=== PATIENT | female | born 1965 ===

== ENCOUNTER 2017-01-29 16:54 | Emergency (ER) | payer MEDICAID ==
[2017-01-29 17:07] VITALS: BP 119/62; PULSE 86; RESP 12; TEMP 97.7; O2SAT 99
--- NOTE | 2017-01-29 17:47 | ED PDOC ---
HPI: Psych/Substance Abuse Time Seen by Provider: 01/29/17 17:10 Chief Complaint (Nursing): Chest Pain History Per: Patient History/Exam Limitations: no limitations Onset/Duration Of Symptoms: Days (5) Modifying Factor(s): None Associated Symptoms: Anxiety, Depression, Paranoia. denies: Suicidal Thoughts Additional Complaint(s): 51 year old female complains of chest pain for 4 days. She also reports unable to sleep at night, constantly thinking and feeling worried. Patient reports no appetite and not eating for 3 days. Today she feels nauseous and vomiting today after drinking ruperto tea. She additionally reports generalized headache, thinks her blood pressure is high and feels "jittery." She states she Patient reports history of depression and anxiety and used to take xanax, and klonopin but lost her insurance and was unable to afford and continue taking her psychiatric medication. She states she had lost her job and is unable to pay her bills and is having trouble paying rent and is scared she will get evicted. She recently got Medicaid and is hoping to get medications. Past Medical History Reviewed: Historical Data, Nursing Documentation, Vital Signs Vital Signs: Last Vital Signs Temp 97.7 F 01/29/17 17:04 Pulse 86 01/29/17 17:04 Resp 12 01/29/17 17:04 BP 119/62 01/29/17 17:04 Pulse Ox 99 01/29/17 17:04 - Medical History PMH: Anxiety, Depression - Family History Family History: States: Unknown Family Hx - Living Arrangements Living Arrangements: With Family - Social History Current smoker - smoking cessation education provided: No Alcohol: None Drugs: Denies - Allergies Allergies/Adverse Reactions: Allergies Allergy/AdvReac Type Severity Reaction Status Date / Time No Known Allergies Allergy Verified 01/29/17 17:04 Review of Systems Constitutional: Negative for: Fever, Weakness, Malaise Cardiovascular: Positive for: Chest Pain. Negative for: Palpitations Respiratory: Negative for: Cough, Shortness of Breath Gastrointestinal: Positive for: Nausea, Vomiting (1). Negative for: Abdominal Pain, Diarrhea Genitourinary Female: Negative for: Dysuria Skin: Negative for: Rash Neurological: Positive for: Headache. Negative for: Weakness, Numbness, Dizziness Psych: Positive for: Anxiety, Depression Physical Exam - Reviewed Nursing Documentation Reviewed: Yes Vital Signs Reviewed: Yes - Physical Exam Appears: Positive for: Non-toxic Head Exam: Positive for: ATRAUMATIC, NORMAL INSPECTION, NORMOCEPHALIC Skin: Positive for: Warm, Dry. Negative for: Diaphoresis, Pallor Eye Exam: Positive for: Normal appearance, EOMI, PERRL Neck: Positive for: Normal, Painless ROM Cardiovascular/Chest: Positive for: Regular Rate, Rhythm. Negative for: Murmur Respiratory: Positive for: Normal Breath Sounds. Negative for: Wheezing, Respiratory Distress Gastrointestinal/Abdominal: Positive for: Bowel Sounds, Soft. Negative for: Tenderness, Distended, Guarding Back: Positive for: Normal Inspection Extremity: Positive for: Normal ROM. 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 She will consider admission after talking to her family. Orders placed for labs, IV NS, Reglan, Pepcid and Benadryl. UDS positive for opiates and benzo 195 Patient reevaluted and reports feeling better. She is now calm and cooperative. She does not wish to stay in the hospital. Advise patient to follow up outpatient for further care. Patient is stable for discharge Disposition - Clinical Impression Clinical Impression: Anxiety Counseled Patient/Family Regarding: Studies Performed, Diagnosis, Need For Followup - Disposition Referrals: Jorge Mendez MD [Non-Staff] - Disposition: Transfer of Care Disposition Time: 20:00 Condition: STABLE Additional Instructions: Please follow up with your psychiatrist outpatient for further evaluation and your medication refills return to hospital for any worsening symptoms or concern Instructions: Anxiety (ED) - POA Present On Arrival: None
[2017-01-29] MEDS ORDERED: Sodium Chloride 0.9% 1,000 ML IV STA (18:41)
[2017-01-29] MEDS ORDERED: DiphenhydrAMINE 50 mg/ml Inj IVP STA (18:41)
[2017-01-29] MEDS ORDERED: DiphenhydrAMINE 50 mg/ml Inj ONE (19:24)
[2017-01-29 19:33] LABS: ALB/GLOB RATIO 1.4 (1.0-2.1); ALCOHOL SERUM < 10 mg/dl (0-10); ALKALINE PHOSPHATASE 83 U/L (38-126); ALT/SGPT 43 U/L (9-52); AST/SGOT 47 U/L (14-36); BILIRUBIN,TOTAL 0.7 mg/dl (0.2-1.3); BLOOD UREA NITROGEN 16 mg/dl (7-17); CALCIUM 11.2 mg/dL (8.4-10.2); CARBON DIOXIDE 29 mmol/L (22-30); CHLORIDE 97 mmol/L (98-107); GFR AFRICAN-AMERICAN > 60; GLUCOSE,RANDOM 102 mg/dL (65-105); SODIUM 140 mmol/l (132-148); TOTAL PROTEIN 8.4 G/DL (6.3-8.2)
[2017-01-29 19:42] LABS: RBC URINE 2 /hpf (0-3); URINE BACTERIA RARE (<OCC); URINE BILIRUBIN NEGATIVE (NEGATIVE); URINE BLOOD NEGATIVE (NEGATIVE); URINE COLOR YELLOW (YELLOW); URINE GLUCOSE (UA) NEG (Normal); URINE KETONE NEGATIVE (NEGATIVE); URINE LEUKOCYTE ESTERASE SMALL Leu/uL (Negative); URINE PROTEIN NEGATIVE (NEGATIVE); URINE UROBILINOGEN 0.2-1.0 mg/dL (0.2-1.0); WBC URINE 3 /hpf (0-5)
== END 2017-01-29 21:41 | disposition home or self-care (01) ==
LOC: H.ER 16:54
DX: F41.9 Anxiety disorder, unspecified (principal); F32.9 Major depressive disorder, single episode, unspecified; R11.2 Nausea with vomiting, unspecified
CPT/HCPCS: 80053; 80320; 80324; 80345; 80346; 80349; 80353; 80358; 80361; 81003; 81025; 83992; 96361; 96374; 96375; 99283; J1200; J2765; J7040